=== PATIENT | female | born 1975 | race Caucasian/White ===

== ENCOUNTER 2019-04-15 10:21 | Outpatient (CLI) | payer BC, SELFPAY ==
--- NOTE | ~2019-04-15 | XR_ITS ---
EXAMINATION: XR knee RT 3V DATE: 04/15/2019 11:05 INDICATION: Right knee cellulitis. TECHNIQUE: 3 views of right knee were obtained. COMPARISON: None. FINDINGS: Bone alignment is normal. No fracture. There is mild osteoarthritis of medial and patellofe moral compartments. No knee joint effusion. IMPRESSION: 1. Mild right knee osteoarthritis. Reviewed, dictated and finalized at location A. TEACHER ASSISTANT
[2019-04-15 11:03] LABS: Hematocrit 41.8 % (37.0-47.0); Hemoglobin 13.8 g/dL (12.0-15.0); Mean Corpuscular Hemoglobin 27.5 pg (26-34); Mean Corpuscular Volume 83.3 fl (80-100); Mean Platelet Volume 8.9 fl (7.4-10.4); Platelet Count Result 403 k/mm3 (150-375); Red Blood Count 5.02 M/mm3 (4.2-5.4); White Blood Count 7.5 K/mm3 (4.5-10.0)
[2019-04-15 11:16] LABS: Blood Urea Nitrogen 11 mg/dL (7-17); CRP < 0.5 mg/dL (<1.0); Calcium 9.2 mg/dL (8.4-10.2); Carbon Dioxide 25 mmol/L (22-30); Chloride 101 mmol/L (98-107); Estimated Glomerular Filt Rate > 60; Glucose 79 mg/dL (65-105); Potassium 3.4 mmol/L (3.4-5.0); Sodium 137 mmol/L (137-145)
[2019-04-15 11:31] LABS: Erythrocyte Sedimentation Rate 8 mm/hr (0-20)
== END 2019-04-15 10:22 | disposition home or self-care (01) ==
LOC: ANHLAB 10:26 → ANHIMG 10:38
PROVIDERS: Visit Provider Emergency Medicine
DX: L03.115 Cellulitis of right lower limb (principal); M17.11 Unilateral primary osteoarthritis, right knee
CPT/HCPCS: 36415; 73562; 80048; 85027; 85652; 86140

== ENCOUNTER 2019-04-26 01:50 | Inpatient (IN) | payer BC, SELFPAY ==
[2019-04-26] VITALS (30 sets, daily range): BP systolic 100–148; BP diastolic 72–110; PULSE 18–100; RESP 9–69; TEMP 36.3–36.9; O2SAT 95–100
--- NOTE | 2019-04-26 | ECHO_ITS ---
Patient Info Name: Ramila Brandon Age: 43 years : 1975 Gender: Female Ht: 64 in Wt: 170 lbs BSA: 1.89 m2 HR: 82 bpm BP: 140 / 101 mmHg Technical Quality: Fair Exam Date: 04/26/2019 2:05 PM Exam Location: [facility] Patient Status: Inpatient Admit Date: 04/26/2019 Staff Ordering Physician: Luc Nelson MD Molder Operator: Nicole Ortega RDCS Attending Provider: Emory Jacobsen MD Exam Type: CA echo dop color flow w con Study Info Complete two-dimensional, color flow and Doppler transthoracic echocardiogram is performed with contrast to opacify the left ventrical and to improve the deliniation of the left ventrical endocarial boarders. Contrast/Agitated Saline Contrast/Ag. Saline: Definity Amount: 2.00 ml Summary 1. Left ventricular systolic function is normal, estimated at 60-65%. Left Ventricle Left ventricular chamber dimension is normal. Left ventricular systolic function is normal, estimated at 60-65%. There is no increased left ventricular wall thickness. Left ventricular septal wall motion is normal. The left ventricular diastolic function is normal. Right Ventricle Right ventricular chamber dimension is normal. Right ventricular systolic function is normal. Left Atria Left atrial chamber dimension is normal. Right Atria Right atrial chamber dimension is normal. Aortic Valve The aortic valve is trileaflet. There is no aortic valve sclerosis. There is no aortic valve stenosis. There is no aortic valve regurgitation. Pulmonic Valve The pulmonic valve is normal. There is no pulmonic valve stenosis. There is no pulmonic regurgitation. Mitral Valve The mitral valve has normal leaflets. There is no mitral valve stenosis. There is no mitral valve regurgitation. Tricuspid Valve The tricuspid valve leaflets are normal. There is no significant tricuspid valve stenosis. There is no tricuspid valve regurgitation. No pulmonary hypertension, estimated pulmonary arterial systolic pressure is 28 mmHg. Pericardium/Pleural The pericardium appears normal. There is no pericardial effusion. Inferior Vena Cava Normal inferior vena cava with >50% collapse upon inspiration consistent with normal right atrial pressure, 5 mmHg. Aorta The aortic root size at the sinus of Valsalva is normal. The prox ascending aorta size is normal. Left Ventricular Outflow Tract Name Value Normal LVOT 2D LVOT Diameter 2.05 cm LVOT Doppler LVOT Peak Velocity 94.24 cm/s LVOT Peak Gradient 2 mmHg LVOT Mean Gradient 1 mmHg LVOT VTI 18.58 cm LVOT VTI/AV VTI Ratio 0.99 LVOT Stroke Volume 61.02 ml LVOT CO 13.09 l/min LVOT CI 6.93 L/min/m2 Mitral Valve Name Value Normal
--- NOTE | ~2019-04-26 | XR_ITS ---
XR chest 2V DATE: 04/26/2019 02:49 INDICATION: Generalized chest pain, bilateral arm pain, dizziness TECHNIQUE: AP and lateral views COMPARISON: None FINDINGS: Normal heart size. No hilar or mediastinal enlargement. No pulmonary infiltrate or consolid ation, pleural effusion or pulmonary vascular congestion or pneumothorax. Included skeletal structure s are unremarkable. IMPRESSION: No active cardiopulmonary disease Reviewed, dictated and finalized at location A. NING OPERATOR
--- NOTE | 2019-04-26 02:22 | ECG_ITS ---
Measurements Intervals [place] Rate: 77 P: 28 ME: 139 QRS: 7 QRSD: 110 T: 20 QT: 393 QTc: 446 Interpretive Statements SINUS RHYTHM WITH SINUS ARRHYTHMIA NORMAL ECG Electronically Signed On 04-26-2019 7:36:59 ROPE CUTTER by Karl Guzman D.O.
--- NOTE | 2019-04-26 02:29 | ED.CHESTPAIN ---
HPI - Chest Pain General Chief Complaint: Chest Pain Stated Complaint: Chest Pain Time Seen by Provider: 04/26/19 02:01 Source: patient Mode of arrival: ambulatory Limitations: no limitations History of Present Illness HPI narrative: A 43 y/o female presents to the ED with c/o substernal CP. Pt states that the CP started yesterday night and the CP started suddenly. The CP radiated into the back of both of her arms. Initially the CP was a 3/10, but worsened to a 7/10 in severity. The episode lasted approximately 10 minutes. Pt adds that she drove to work and the CP started again, but it was less severe than the first episode. Pt reports diaphoresis, but denies N/V. She denies any stress that could have caused the CP. Pt took Tums, Aspirin 81mg x4, and Pepcid prior to her arrival in the ED. MD complaint: chest pain (Substernal) Onset (ago): hour(s) (Yesterday night) Timing of current episode: episodic Pain location: substernal Pain radiation: right arm and left arm Associated symptoms: diaphoresis Treatment prior to arrival: aspirin and other (Tums, Pepcid) Related Data Home Medications Medication Instructions Recorded Confirmed armodafinil mg PO 04/26/19 baclofen mg 04/26/19 methylphenidate HCl 04/26/19 protriptyline mg 04/26/19 Allergies Allergy/AdvReac Type Severity Reaction Status Date / Time Penicillins Allergy Hives Verified 04/26/19 02:24 Review of Systems Review of Systems: Narrative: CONSTITUTIONAL: Denies fever, chills, or sweats. EYES: Denies visual changes, redness, or discharge. ENT: Denies rhinorrhea, congestion, sore throat, or otalgia. CARDIOVASCULAR: Denies palpitations or edema. Reports substernal chest pain and diaphoresis. RESPIRATORY: Denies cough or dyspnea. GASTROINTESTINAL: Denies abdominal pain, nausea, vomiting, or diarrhea. GENITOURINARY: Denies dysuria or hematuria. SKIN: Denies rash or itching. MUSCULOSKELETAL: Denies back pain, joint pain, or myalgia. NEUROLOGIC: Denies headache, numbness, or weakness. 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 Exam Narrative: Exam Narrative: GENERAL: Well-appearing, well-nourished, and in no acute distress. HEAD: Normocephalic, atraumatic. EYES: PERRLA and EOMI. ENT: Nares clear, no rhinorrhea or epistaxis. Mucous membranes moist. NECK: Supple. CHEST: Clear to auscultation. No respiratory distress. HEART: Regular rate and rhythm. No murmur heard. Normal peripheral pulses. ABDOMEN: Soft, nontender, nondistended, normal active bowel sounds. EXTREMITIES: Normal range of motion. No edema. SKIN: Warm, dry, no rash. NEURO: No focal deficits. Alert and oriented X3. Course Vital Signs Vital signs: Vital Signs Temperature 36.9 C 04/26/19 02:14 Pulse Rate 85 04/26/19 02:14 Respiratory Rate 13 04/26/19 02:14 Blood Pressure 145/106 H 04/26/19 02:14 Pulse Oximetry 99 04/26/19 02:14 Temperature 36.8 C 04/26/19 05:37 Pulse Rate 83 04/26/19 05:37 Respiratory Rate 13 04/26/19 05:37 Blood Pressure 123/93 H 04/26/19 05:37 Pulse Oximetry 99 04/26/19 05:37 MDM - Chest Pain MDM Narrative Medical decision making narrative: Patient presented for evaluation of anginal type chest pain. Patient has a heart score of 6. She has an elevation in troponin, she has some depressions which are stable on concurrent EKGs, but she has some T wave inversions that are dynamic on her EKGs. Patient chest pain-free in the ER. She was given aspirin, nitroglycerin ordered for the patient as well. Given elevation in tropo
[2019-04-26 02:42] LABS: Basophils Percent Auto 0.4 % (0.2-1.2); Eosinophils Percent Auto 0.4 % (0-4.4); Hematocrit 44.4 % (37.0-47.0); Hemoglobin 14.4 g/dL (12.0-15.0); Immature Granulocyte Absolute 0.04 K/mm3 (0.00-0.031); Immature Granulocyte Percent A 0.5 % (0-0.5); Lymphocytes Percent Auto 18.8 % (18.3-44.2); Mean Corpuscular HGB Conc 32.4 g/dl (32-36); Mean Corpuscular Hemoglobin 27.4 pg (26-34); Mean Corpuscular Volume 84.6 fl (80-100); Mean Platelet Volume 9.1 fl (7.4-10.4); Monocytes Absolute Auto 0.5 K/mm3 (0.1-0.6); Monocytes Percent Auto 6.1 % (2.6-8.5); Neutrophils Absolute Auto 5.9 K/mm3 (1.3-6.7); Neutrophils Percent Auto 73.8 % (45.5-73.1); Platelet Count Result 393 k/mm3 (150-375); Red Blood Count 5.25 M/mm3 (4.2-5.4); Red Cell Distribution Width 13.3 % (11.5-14.5)
[2019-04-26 02:55] LABS: INR 0.9; Prothrombin Time 12.3 Seconds (11.1-14.7)
[2019-04-26 02:57] LABS: Partial Thromboplastin Time 29.7 SECONDS (22.3-36.8)
[2019-04-26 03:10] LABS: Blood Urea Nitrogen 15 mg/dL (7-17); Calcium 9.9 mg/dL (8.4-10.2); Carbon Dioxide 29 mmol/L (22-30); Chloride 100 mmol/L (98-107); Estimated Glomerular Filt Rate > 60; Glucose 101 mg/dL (65-105); Potassium 3.4 mmol/L (3.4-5.0); Sodium 140 mmol/L (137-145); Troponin I 0.056 ng/mL (0.000-0.034)
[2019-04-26] MEDS: HEPARIN SODIUM 5,000 UNITS/ML VIAL 4000 UNITS IV PUSH ×2 (05:07→21:25)
[2019-04-26] MEDS: HEPARIN SOD/D5W 100 UNITS/ML 25,000 UNITS/250 ML BAG 8 UNITS IV CONT ×2 (05:34→13:08)
[2019-04-26 06:36] LABS: Troponin I 0.593 ng/mL (0.000-0.034)
[2019-04-26] MEDS: ASPIRIN 81 MG CHEWABLE TABLET PO (08:27)
--- NOTE | 2019-04-26 08:58 | PM.IMHP ---
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 She had a light 1st meals a day with 1 taco. She then started to work. While driving she began to experience some pressure in her back that radiated down both arms to her elbows. It was mild perhaps 3/10. It lasted 10-15 minutes. It recurred when she reached her workplace and got out of the car and cane and to the building. It was again about 3/10. Same area. 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 This time the pressure was substernal as well and radiated down both arms. She became diaphoretic. Because of this she presented to the emergency department. She has not been experiencing any indigestion. She has never had similar discomfort. No prior history of coronary disease. No recent indigestion or heartburn. No recent change in bowel or bladder function. Family history of coronary disease and her mother at age 65. Former smoker. Does have hypertension. No history of hyperlipidemia. No diabetes. Review of Systems Review of Systems: All systems reviewed & are unremarkable except as noted in HPI and below PMFSH Past Medical History Medical History Cerebral palsy HTN (hypertension) Surgical History Surgical History History of tonsillectomy Family History Family History Mother Narcolepsy CANDELARIA (obstructive sleep apnea) Diabetes mellitus Acute myocardial infarction Congestive heart failure Hypertension Sibling Chronic obstructive pulmonary disease Social History Social History Smoking status: Former smoker Second hand tobacco smoke exposure: Yes Alcohol intake: current Drinks per week: 1 Substance use: never Gender identity (if verbalized by the patient): Female Spiritual care concerns: Yes (lds) Agree to blood products: Yes Meds Home Medications and Allergies Home Medications Medication Instructions Recorded Confirmed Type Vitamin D3 2,000 units PO DAILY 04/26/19 04/26/19 History armodafinil 250 mg PO DAILY 04/26/19 04/26/19 History baclofen 20 mg PO BID 04/26/19 04/26/19 History baclofen 30 mg PO HS 04/26/19 04/26/19 History cetirizine [Zyrtec] 10 mg PO DAILY PRN 04/26/19 04/26/19 History methylphenidate HCl 10 mg PO BID PRN 04/26/19 04/26/19 History [id number]-FA-vit K 1 cap PO DAILY 04/26/19 04/26/19 History [Bariatric Multivitamins] protriptyline 5 mg PO BID 04/26/19 04/26/19 History vitamin B complex [B 1 tablet PO DAILY 04/26/19 04/26/19 History Complex-Vitamin B12] Allergies Allergy/AdvReac Type Severity Reaction Status Date / Time Penicillins Allergy Hives Verified 04/26/19 02:24 plastic tape Allergy Blister Uncoded 04/26/19 06:54 chicken AdvReac Diarrhea Uncoded 04/26/19 06:54 Vital Signs Vital Signs - 24 hr 04/26/19 02:14 04/26/19 02:27 04/26/19 05:37 Temperature 98.5 F 98.3 F Pulse Rate 85 100 83 Respiratory Rate 13 13 Blood Pressure 145/106 H 123/93 H Pulse Oximetry 99 97 99 04/26/19 06:43 Temperature Pulse Rate 90 Respiratory Rate 16 Blood Pressure 140/101 H Pulse Oximetry 99 Exam Narrative: Exam Narrative: HEENT: EOMI, PERRL, pharyngeal mucosa pink and intact NECK: No JVD, adenopathy, or thyromegaly CHEST: Clear to auscultation. Normal effort. HEART: NL S1/S2, regular, no murmur ABDOMEN: BS+, soft, nontender, no mass, no bruits EXTREMITIES: No cyanosis, edema, or clubbing NEUROLOGIC: CN intact and symmetric to inspection. MUSCULOSKELETAL: Tone and strength symmetric. PSYCH: Alert. Oriented to person, place, and time. H&P: Results Labs Labs: Shavon
[2019-04-26] MEDS: NITROGLYCERIN SL 0.4 MG TABLET SUBLINGUAL ×4 (09:10→12:35)
--- NOTE | 2019-04-26 09:33 | PM.CNCAR ---
Assessment and Plan Assessment and plan (1) HTN (hypertension): Code(s): I10 - Essential (primary) hypertension Status: Acute Assessment and Plan: Will start on low-dose metoprolol and watch closely (2) Chest pain: Qualifiers: Chest pain type: chest pain due to myocardial ischemia Ischemic chest pain type: unstable angina pectoris Qualified Code(s): I20.0 - Unstable angina Code(s): R07.9 - Chest pain, unspecified Status: Acute Assessment and Plan: Seems to be atypical in nature but however she had some EKG changes and 2nd troponin is elevated suggestive of non ST elevation myocardial infarction. Will proceed with cardiac catheterization. (3) Non-ST elevation myocardial infarction (NSTEMI): Code(s): I21.4 - Non-ST elevation (NSTEMI) myocardial infarction Status: Acute Assessment and Plan: Troponin is elevated, she had recurrent episode of chest pain in spite of heparin and aspirin, will proceed with cardiac catheterization today. Procedure discussed with patient, risks, benefits, alternative diagnostic measures were explained, she agreed with the procedure (4) GERD (gastroesophageal reflux disease): Code(s): K21.9 - Gastro-esophageal reflux disease without esophagitis Status: Acute Additional Plan Thank you for allowing me to participate in this patient's care, I will be following up with you. Please do not hesitate to call me for any other inquiry History of Present Illness History of Present Illness Consult date/time: 04/26/19 09:33 43 years old lady with history of cerebral palsy, and borderline hypertension, came down to the emergency room because of recurrent episode of chest pain. 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 She took a GI cocktail, and she took aspirin, but started having another episode of chest pain, total episodes of pain was for episodes 1 of them was more severe and lasted longer and with that she had some diaphoresis. No known history of coronary artery disease no history of previous myocardial infarction. With that she had no shortness of breath no palpitation no dizziness no syncope. No history of nausea, she had history of gastric sleeve, indicate occasional abdominal heaviness but no recent episodes of that. Her EKG showed inverted T-wave in lateral leads which resolved, troponin slightly elevated and subsequent set showed troponin of 0.5. Currently she is having no chest pain but then upon further discussion she stated she has pain 3/ Reason For Visit: angina Review of Systems Constitutional: Constitutional: Reports difficulty sleeping and Reports lethargy Cardiovascular: Cardiovascular: Reports as per HPI Musculoskeletal: Comments: History of cerebral palsy Neurologic: Comments: History of cerebral palsy [facility] Past Medical History Medical History Cerebral palsy HTN (hypertension) Surgical History Surgical History History of tonsillectomy Family History Family History Mother Narcolepsy CANDELARIA (obstructive sleep apnea) Diabetes mellitus Acute myocardial infarction Congestive heart failure Hypertension Sibling Chronic obstructive pulmonary disease Social History Social History Smoking status: Former smoker Second hand tobacco smoke exposure: Yes Alcohol intake: current Drinks per week: 1 Substance use: never Gender identity (if verbalized by the patient): Female Spiritual care concerns: Yes (lds) Agree to blood products: Yes Meds Home Medications and Aller
[2019-04-26] MEDS: BACLOFEN 10 MG TABLET 20 MG PO ×2 (10:00→15:19)
--- NOTE | 2019-04-26 11:00 | ADMGEN ---
This patient, Ramila Brandon, was admitted to Intensive Care Unit-9. Patient/family oriented to hospital policies and general routines including ID bracelet, bed and alarms, visiting hours, pain management, procedures, bathroom and other care routines, personal items, smoking policy, room service/diet, and visiting hours. Valuables list has been completed. Information on how to activate the Rapid Response Team has been discussed. Patient/Family are encouraged to report perceived risks to care and to ask questions if they do not understand what they are told or what they should do.
--- NOTE | 2019-04-26 11:46 | WPDCARDPROC ---
Cardiac Cath Procedure Note Date of procedure:: 04/26/19 Performing physician:: Luc Nelson MD Procedure: 1. Left heart catheterization, selective coronary angiogram. 2. Left ventricular angiogram. 3. Conscious sedation. 4. Angio-Seal device for arterial hemostasis 5. Injection of intracoronary nitroglycerin Radiator Core Tester: Dr. Luc Nelson Complications: None. Sedation: Conscious sedation, local anesthesia, using 1 mg of Versed said, 25 mcg of fentanyl, and using 1% lidocaine for local anesthesia. Technique: After informed consent was obtained from patient, was brought to the optical lab technician, put in the optical lab technician table, prepped and draped in usual sterile fashion. Five Croatian sheath was inserted into the right common femoral artery, through the sheath 5 Croatian JL4 catheter inserted, advanced to the left coronary artery, left coronary artery angiogram was obtained. The catheter was exchanged over guidewire into a 5 Croatian JR4 catheter, advanced to the right coronary artery, right coronary artery angiogram was obtained. The catheter then was exchanged over guidewire into this 5 Croatian pigtail catheter, advanced to left ventricle, left ventricular angiogram was obtained. Five Croatian JR4 catheter inserted again, an intra arterial nitroglycerin was administered, a repeat angiogram was done The catheter then was pulled, the sheath was pulled applying Angio-Seal device for arterial hemostasis. Patient tolerated the procedure no complication, taken from the optical lab technician to his room in stable condition stable vital signs. Hemodynamics: aortic pressure 114/60 . LV pressure 114/04 with LVEDP of 14 mmHg Angiographic findings: Left main: Medium size artery no significant disease or stenosis. Lad medium size artery showed no significant disease or stenosis, 1st diagonal branch has a branch that has proximal disease 50% followed by a branch coming off with subtotal occlusion but at that level the branches about less than 1 mm, seems to reconstitute distally Left circumflex artery, medium size artery, no significant disease or stenosis. RCA: Dominant vessel, showed no significant disease or stenosis LV: Normal size left ventricle with normal left ventricular systolic function. Summary: Single-vessel coronary disease with small vessel disease 3rd order vessel, otherwise no significant other lesions. Normal left ventricular systolic function Recommendation: Maximum medical treatment. Risk factor modification. Will keep on heparin for 48 hours total, continue with aspirin and Brilinta
[2019-04-26] MEDS: TICAGRELOR 90 MG TABLET PO ×2 (12:32→21:10)
[2019-04-26] MEDS: ROSUVASTATIN 5 MG TABLET PO (12:32)
[2019-04-26] MEDS: METOPROLOL SUCCINATE EXT REL 25 MG TABCR PO (12:32)
[2019-04-26 12:57] LABS: Partial Thromboplastin Time 29.3 SECONDS (22.3-36.8); Prothrombin Time 13.1 Seconds (11.1-14.7)
[2019-04-26 12:59] LABS: Glucose Point of Care 70 (65-105)
[2019-04-26] MEDS: ISOSORBIDE MONONITRATE 30 MG TAB.ER.24H PO (13:04)
[2019-04-26] MEDS: SODIUM CHLORIDE 0.9% IV 1,000 ML 80 ML IV CONT (13:07)
[2019-04-26 13:11] LABS: Troponin I 0.542 ng/mL (0.000-0.034)
[2019-04-26] MEDS: PERFLUTREN LIPID MICROSPHERES 1.5 ML VIAL DILUTED TO 10 ML TOTAL VOLUME (15:19)
[2019-04-26] MEDS: ACETAMINOPHEN 500 MG TABLET 1000 MG PO (17:41)
[2019-04-26] MEDS: BACLOFEN 10 MG TABLET 30 MG PO (21:15)
[2019-04-27] VITALS (8 sets, daily range): BP systolic 110–117; BP diastolic 74–75; PULSE 53–98; RESP 16–18; TEMP 36.2–36.4; O2SAT 98–100
[2019-04-27] MEDS: ACETAMINOPHEN 500 MG TABLET 1000 MG PO ×2 (00:09→12:24)
[2019-04-27 03:37] LABS: Basophils Percent Auto 0.3 % (0.2-1.2); Eosinophils Absolute Auto 0.2 K/mm3 (0-0.3); Hematocrit 37.6 % (37.0-47.0); Immature Granulocyte Absolute 0.03 K/mm3 (0.00-0.031); Immature Granulocyte Percent A 0.3 % (0-0.5); Lymphocytes Absolute Auto 2.09 K/mm3 (0.9-3.2); Lymphocytes Percent Auto 22.8 % (18.3-44.2); Mean Corpuscular HGB Conc 31.9 g/dl (32-36); Mean Corpuscular Hemoglobin 27.4 pg (26-34); Mean Corpuscular Volume 85.8 fl (80-100); Monocytes Absolute Auto 0.5 K/mm3 (0.1-0.6); Monocytes Percent Auto 5.5 % (2.6-8.5); Neutrophils Absolute Auto 6.3 K/mm3 (1.3-6.7); Neutrophils Percent Auto 69.1 % (45.5-73.1); Platelet Count Result 299 k/mm3 (150-375); Red Blood Count 4.38 M/mm3 (4.2-5.4); Red Cell Distribution Width 13.2 % (11.5-14.5); White Blood Count 9.2 K/mm3 (4.5-10.0)
[2019-04-27 03:48] LABS: Partial Thromboplastin Time 106.8 SECONDS (22.3-36.8)
[2019-04-27 03:55] LABS: Alanine Aminotransferase 13 U/L (4-35); Albumin Level 3.3 g/dL (3.5-5.1); Alkaline Phosphatase 64 U/L (38-126); Aspartate Amino Transferase 23 U/L (14-36); Bilirubin,Total 0.1 mg/dL (0.2-1.3); Blood Urea Nitrogen 7 mg/dL (7-17); Calcium 8.5 mg/dL (8.4-10.2); Carbon Dioxide 26 mmol/L (22-30); Chloride 102 mmol/L (98-107); Cholesterol 135 mg/dL (0-200); Estimated CRCL calculation 151 ml/min; Estimated Glomerular Filt Rate > 60; Glucose 81 mg/dL (65-105); HDL Direct 48 mg/dL; Potassium 3.3 mmol/L (3.4-5.0); Sodium 139 mmol/L (137-145); Triglycerides 59 mg/dL (<150)
[2019-04-27 03:58] LABS: LDL Cholesterol Direct 67 mg/dL
[2019-04-27 04:12] LABS: Troponin I 0.533 ng/mL (0.000-0.034)
[2019-04-27] MEDS: SALINE 0.65% NAS SOLN 44 ML BTL 1 SPRAY NASAL (05:11)
[2019-04-27] MEDS: ONDANSETRON INJ 4 MG/2 ML VIAL IV PUSH (05:12)
[2019-04-27 10:46] LABS: Partial Thromboplastin Time 72.4 SECONDS (22.3-36.8)
[2019-04-27] MEDS: TICAGRELOR 90 MG TABLET PO ×2 (10:47→13:17)
[2019-04-27] MEDS: METOPROLOL SUCCINATE EXT REL 25 MG TABCR PO (10:47)
[2019-04-27] MEDS: CHOLECALCIFEROL 1,000 UNIT TABLET 2000 UNITS PO (10:52)
[2019-04-27] MEDS: ATORVASTATIN 20 MG TABLET PO (10:52)
[2019-04-27] MEDS: VITAMIN B COMPLEX CAPSULE 1 CAP PO (10:53)
[2019-04-27] MEDS: MULTIVITAMINS /C LUTEIN (CENTRUM SILVER) TABLET *BKC 1 TAB PO (10:53)
--- NOTE | 2019-04-27 11:17 | PM.PNCARD ---
Progress Note: A&P Assessment and Plan (1) HTN (hypertension): Code(s): I10 - Essential (primary) hypertension Status: Acute Assessment and Plan: Well controlled now on metoprolol y (2) Chest pain: Qualifiers: Chest pain type: chest pain due to myocardial ischemia Ischemic chest pain type: unstable angina pectoris Qualified Code(s): I20.0 - Unstable angina Code(s): R07.9 - Chest pain, unspecified Status: Acute Assessment and Plan: Cardiac catheterization done yesterday showed small diagonal branch disease, will continue with medical treatment, with aspirin Brilinta and Crestor (3) Non-ST elevation myocardial infarction (NSTEMI): Code(s): I21.4 - Non-ST elevation (NSTEMI) myocardial infarction Status: Acute Assessment and Plan: She seems to be stable now to be discharged home on the above medications, she needs to start exercise program, and have a follow-up with me in 1 week (4) GERD (gastroesophageal reflux disease): Code(s): K21.9 - Gastro-esophageal reflux disease without esophagitis Status: Acute Additional Plan Thank you for allowing me to participate in this patient's care, I will be following up with you. Please do not hesitate to call me for any other inquiry Subjective Date/time seen: 04/27/19 11:17 She feels very well today, no chest pain no shortness of breath she had slight tenderness and pain at the groin site which resolved today. She is able to walk with no limitation. Exam Narrative: Exam Narrative: Awake alert oriented x3 not in acute distress Neck is supple no obvious JVD, no carotid bruit Chest: Good air entry bilaterally, lungs are clear to auscultation and percussion bilaterally Cardiovascular: Regular rate and rhythm, 2/6 systolic murmur noted left sternal border, and mitral valve prolapse click noted Abdomen: Soft nontender bowel sounds positive Extremities: No edema has good pulses distally bilaterally Objective Data Vital Signs Vital Signs: Vital Signs - 24 hr 04/26/19 11:22 04/26/19 11:24 04/26/19 11:25 Temperature 36.8 C Pulse Rate 82 84 Respiratory Rate 21 H Blood Pressure 130/90 Pulse Oximetry 98 04/26/19 11:30 04/26/19 11:45 04/26/19 12:00 Temperature Pulse Rate 82 79 78 Respiratory Rate 13 18 15 Blood Pressure 118/87 139/93 H 131/95 H Pulse Oximetry 95 99 99 04/26/19 12:30 04/26/19 12:32 04/26/19 12:38 Temperature 36.6 C Pulse Rate 67 75 88 Respiratory Rate 12 20 Blood Pressure 132/84 132/84 Pulse Oximetry 100 100 04/26/19 13:00 04/26/19 14:00 04/26/19 14:54 Temperature Pulse Rate 75 67 67 Respiratory Rate 13 9 L Blood Pressure 128/91 H 116/81 Pulse Oximetry 99 100 04/26/19 15:00 04/26/19 16:00 04/26/19 17:43 Temperature Pulse Rate 73 73 96 Respiratory Rate 18 15 27 H Blood Pressure 126/91 H 109/73 Pulse Oximetry 100 98 98 04/26/19 18:00 04/26/19 19:39 04/26/19 20:00 Temperature 36.3 C L Pulse Rate 86 18 L 78 Respiratory Rate 17 69 H Blood Pressure 113/81 100/72 Pulse Oximetry 98 98 04/26/19 22:00 04/27/19 00:00 04/27/19 02:00 Temperature 36.3 C L Pulse Rate 67 66 66 Respiratory Rate 18 Blood Pressure 110/75 Pulse Oximetry 98 04/27/19 04:00 04/27/19 06:00 04/27/19 10:36 Temperature 36.2 C L 36.4 C Pulse Rate 53 L 58 L 98 Respiratory Rate 16 16 Blood Pressure 117/74 Pulse Oximetry 100 99 04/27/19 10:47 Temperature Pulse Rate 93 Respiratory Rate Blood Pressure Pulse Oximetry Intake/Output Intake/Output: Intake & Output 04/24/19 04/25/19 04/26/19 04/27/19 23:59 23:59 23:59 23:59 Intake Total 150 1690 Output Total 1225 Balance 150 465 Meds/Results Medications: Active Medications Generic Name Dose Route Start Last Admin Trade Name Freq PRN Reason Stop Dose Admin Acetaminophen 1,000 mg 04/26/19 16:28 04/27/19 00:09 Tylenol Tablet PO 1,000 mg Q6H PRN Admin
--- NOTE | 2019-04-27 11:52 | PM.DS ---
DS: Diagnosis Admitting Diagnosis Admitting Diagnosis: Unstable angina Discharge Diagnosis (1) Chest pain: Qualifiers: Chest pain type: chest pain due to myocardial ischemia Ischemic chest pain type: unstable angina pectoris Qualified Code(s): I20.0 - Unstable angina Code(s): R07.9 - Chest pain, unspecified Status: Acute Assessment and Plan: Symptoms are consistent with angina pectoris Elevation of troponin is significant and worrisome for non ST myocardial infarction even though her electrocardiogram is unremarkable. Discharge meds ordered (2) HTN (hypertension): Code(s): I10 - Essential (primary) hypertension Status: Acute Assessment and Plan: Would likely benefit from antihypertensive therapy Metoprolol DS: Summary Hospital Course Reason for hospitalization: chest pain Hospital Course: Admitted with chest pain and elevated troponin. Treated with ACS protocol. Vitals remained stable. Coronary angiogram showed single-vessel coronary disease with small vessel disease 3rd order vessel, otherwise no significant other lesions. Normal left ventricular systolic function. Remained stable without chest pain. Time Spent with Patient Time attestation: Total time spent providing and/or coordinating discharge services:35 min Exam Narrative: Exam Narrative: HEENT: EOMI, PERRL, pharyngeal mucosa pink and intact NECK: No JVD, adenopathy, or thyromegaly CHEST: Clear to auscultation. Normal effort. HEART: NL S1/S2, regular, no murmur ABDOMEN: BS+, soft, nontender, no mass, no bruits EXTREMITIES: No cyanosis, edema, or clubbing NEUROLOGIC: CN intact and symmetric to inspection. MUSCULOSKELETAL: Tone and strength symmetric. PSYCH: Alert. Oriented to person, place, and time. DS: Data Data Completed and Pending Labs on day of discharge: Labs from last 24 hours 04/27/19 04/27/19 04/27/19 10:13 03:19 03:19 WBC RBC Hgb Hct MCV MCH MCHC RDW Plt Count MPV Immature Gran % (Auto) Neut % (Auto) Lymph % (Auto) [place] % (Auto) Eos % (Auto) Baso % (Auto) Lymph # (Auto) [place] # (Auto) Eos # (Auto) Baso # (Auto) Abs Immat Gran (auto) Absolute Neuts (auto) Absolute Nucleated RBC Nucleated RBC % PT INR APTT 72.4 H Sodium 139 Potassium 3.3 L Chloride 102 Carbon Dioxide 26 BUN 7 D Creatinine 0.40 L Estim Creat Clear Calc 151 Estimated GFR > 60 Glucose 81 POC Capillary Glucose Calcium 8.5 Total Bilirubin 0.1 L AST 23 ALT 13 Alkaline Phosphatase 64 Troponin I 0.533 H* Total Protein 6.0 L Albumin 3.3 L Triglycerides 59 Cholesterol 135 LDL Cholesterol Direct 67 HDL Direct 48 04/27/19 04/27/19 04/26/19 03:19 03:19 20:07 WBC 9.2 RBC 4.38 Hgb 12.0 Hct 37.6 MCV 85.8 MCH 27.4 MCHC 31.9 L RDW 13.2 Plt Count 299 MPV 9.0 Immature Gran % (Auto) 0.3 Neut % (Auto) 69.1 Lymph % (Auto) 22.8 [place] % (Auto) 5.5 Eos % (Auto) 2.0 Baso % (Auto) 0.3 Lymph # (Auto) 2.09 [place] # (Auto) 0.5 Eos # (Auto) 0.2 Baso # (Auto) 0.0 Abs Immat Gran (auto) 0.03 Absolute Neuts (auto) 6.3 Absolute Nucleated RBC 0.0 Nucleated RBC % 0.0 PT INR APTT 106.8 H 42.0 H Sodium Potassium Chloride Carbon Dioxide BUN Creatinine Estim Creat Clear Calc Estimated GFR Glucose POC Capillary Glucose Calcium Total Bilirubin AST ALT Alkaline Phosphatase Troponin I Total Protein Albumin Triglycerides Cholesterol LDL Cholesterol Direct HDL Direct 04/26/19 04/26/19 04/26/19 12:22 12:22 12:01 WBC RBC Hgb Hct MCV MCH MCHC RDW Plt Count MPV Immature Gran % (Auto) Neut % (Auto) Lymph % (Auto) [place] % (Auto) Eos % (Auto) Baso % (Auto) Lymph
[2019-04-27] MEDS: ISOSORBIDE MONONITRATE 30 MG TAB.ER.24H PO (12:25)
[2019-04-27] MEDS: ASPIRIN 81 MG CHEWABLE TABLET PO (12:25)
[2019-04-27] MEDS: BACLOFEN 10 MG TABLET 20 MG PO (12:26)
[2019-04-27] MEDS: POTASSIUM CHLORIDE 20 MEQ TABLET 40 MEQ PO (12:47)
== END 2019-04-27 13:15 | disposition home or self-care (01) | DRG 287 ==
LOC: ANHED 04:43 → ANHIMU 05:06 → ANHICU 10:52 → ANHIMU 04-27 11:58 → ANHICU 05-01 09:09 → ANHIMU 05-01 09:09
PROVIDERS: Specialist; Admitting Provider Internal Medicine; Emergency Provider Emergency Medicine; Visit Provider Internal Medicine
PROC: 4A023N7 Measurement of Cardiac Sampling and Pressure, Left Heart, Percutaneous Approach (ICD-10-PCS; CPT 93452; principal; 2019-04-26 09:50)
PROC: 4A023N7 Measurement of Cardiac Sampling and Pressure, Left Heart, Percutaneous Approach (ICD-10-PCS; 2019-04-26 09:50)
DX: I25.110 Atherosclerotic heart disease of native coronary artery with unstable angina pectoris (principal); K21.9 Gastro-esophageal reflux disease without esophagitis; I10 Essential (primary) hypertension; G80.9 Cerebral palsy, unspecified
CPT/HCPCS: 36415; 71046; 80048; 80053; 80061; 84484; 85025; 85380; 85610; 85730; 93005; 93458; 96365; 99285; A9270; C1760; C1887; C1894; C8929; G0269; J1644; J2250; J2405; J3010; J7030; J7040; Q9957

== ENCOUNTER → 2019-09-18 13:39 | Outpatient (CLI) | payer BC, SELFPAY ==
--- NOTE | ~2019-09-18 | US_ITS ---
EXAMINATION: US pelvic complete w TV DATE: 09/18/2019 14:11 INDICATION: Abnormal uterine bleeding TECHNIQUE: Multiple transabdominal and endovaginal sonographic images of the pelvis were obtained. COMPARISON: None. FINDINGS: The uterus measures 8.6 x 4.2 x 5.8 cm. There are isoechoic and hypoechoic masses of the ut erine body measuring up to 2.3 cm which have the appearance of intramural fibroids. The endometrial c omplex measures 16 mm. The right ovary measures 3.1 x 3.4 x 4.0 cm. There is a 1.8 x 1.2 x 1.4 cm hyp oechoic lesion of the right ovary. The left ovary measures 2.5 x 1.7 x 3.0 cm. There is normal vascul ar flow in the ovaries. There is no free fluid in the pelvis. IMPRESSION: 1. Multiple uterine fibroids. 2. Possible hemorrhagic cyst of the right ovary. Sonographic follow-up in 6-12 weeks is recommended. Reviewed, dictated and finalized at location A.
== END ==
PROVIDERS: Visit Provider Student in an Organized Health Care Education/Training Program
DX: N93.9 Abnormal uterine and vaginal bleeding, unspecified (principal); D25.9 Leiomyoma of uterus, unspecified
CPT/HCPCS: 76830; 76856

== ENCOUNTER 2019-09-20 06:30 | Outpatient (CLI) | payer BC, SELFPAY ==
[2019-09-20 17:27] LABS: SARS-CoV-2 RNA PCR Negative
== END 2019-09-20 06:31 | disposition home or self-care (01) ==
LOC: ANHCOVIDDT 06:31
PROVIDERS: Visit Provider Student in an Organized Health Care Education/Training Program
DX: Z01.812 Encounter for preprocedural laboratory examination (principal); Z11.59 Encounter for screening for other viral diseases
CPT/HCPCS: 87635; C9803; U0003

== ENCOUNTER 2019-10-10 07:05 | Outpatient (CLI) | payer BC, SELFPAY ==
[2019-10-10 07:43] LABS: Mean Corpuscular HGB Conc 31.6 g/dl (32-36); Mean Corpuscular Hemoglobin 26.2 pg (26-34); Mean Platelet Volume 9.2 fl (7.4-10.4); Platelet Count Result 376 k/mm3 (150-375); Red Blood Count 4.58 M/mm3 (4.2-5.4); Red Cell Distribution Width 14.9 % (11.5-14.5); White Blood Count 7.7 K/mm3 (4.5-10.0)
[2019-10-10 07:55] LABS: Cholesterol 126 mg/dL (0-200); HDL Direct 50 mg/dL; Triglycerides 74 mg/dL (<150)
[2019-10-10 08:07] LABS: LDL Cholesterol Direct 58 mg/dL
== END 2019-10-10 07:06 | disposition home or self-care (01) ==
DX: E78.2 Mixed hyperlipidemia (principal)
CPT/HCPCS: 36415; 80061; 85027

== ENCOUNTER 2019-11-03 00:13 | Outpatient (CLI) | payer BC, SELFPAY ==
[2019-11-03 20:23] LABS: SARS-CoV-2 RNA PCR Negative
== END 2019-11-03 00:14 | disposition home or self-care (01) ==
LOC: ANHCOVIDDT 00:14
PROVIDERS: Visit Provider Student in an Organized Health Care Education/Training Program
DX: Z01.812 Encounter for preprocedural laboratory examination (principal); Z20.828 Contact with and (suspected) exposure to other viral communicable diseases
CPT/HCPCS: 87635; C9803; U0003

== ENCOUNTER 2019-11-05 00:10 | Day surgery (SDC) | payer BC, SELFPAY ==
[2019-09-17 09:18] VITALS: BMI 28.1
--- NOTE | 2019-11-04 14:40 | PM.IMHP ---
H&P: HPI History of Present Illness Date/Time: 11/04/19 14:40 Chief complaint: Menorrhagia Narrative: Ramila Brandon is a 44 year old nulligravid woman with a long history of menorrhagia. Reports menorrhagia since menarche. Currently states that menses last 7-10 days. She uses menstrual cup with pads for backup. For 1st 3 days of cycle, patient reports changing menstrual cup and pads every 2 hours. For next few days of cycle, patient reports changing menstrual cup and pad every 4-5 hours. For last 2 days of cycle, patient reports changing cups and pads every 6-12 hours. She denies passage of significant blood clots during cycle and denies significant cramping or pain. She does have a history of anemia from heavy menses requiring multiple iron transfusions. Patient has not been sexually active since age 24. Last pap was in 09/2019, WNL. No hx abnl pap. An in-office EMB was attempted, however, unsuccessful due to cervical stenosis. Decision made to proceed with hysteroscopy/D&C as well an endometrial ablation for management of menorrhagia. Review of Systems Review of Systems: All systems reviewed & are unremarkable except as noted in HPI and below Constitutional: Constitutional: Reports as per HPI, Reports no additional constitutional complaints, Denies chills, Denies fever(s), Denies headache(s) and Denies night sweats Eyes: Eyes: Reports as per HPI and Reports no additional eye complaints ENT: Reports system reviewed and no additional complaints, except as documented, Reports as per HPI, Reports Normal hearing present and Denies headache(s) Cardiovascular: Cardiovascular: Reports as per HPI, Reports no additional cardiovascular complaints, Denies chest pain and Denies dyspnea Respiratory: Respiratory: Reports as per HPI, Reports no additional respiratory complaints, Denies cough and Denies dyspnea Gastrointestinal: Gastrointestinal: Reports as per HPI, Reports no additional gastrointestinal complaints, Denies abdominal pain, Denies change in bowel habits, Denies change in stool character, Denies nausea and Denies vomiting Genitourinary: Genitourinary: Reports no additional female genitourinary complaints, Reports as per HPI, Denies abnormal vaginal bleeding, Denies genital lesions, Denies hot flashes, Denies dyspareunia, Denies pelvic pain, Denies sexual dysfunction, Denies urinary incontinence, Denies vaginal discharge, Denies vaginal dryness and Denies vaginal odor Musculoskeletal: Musculoskeletal: Reports no additional musculoskeletal complaints and Reports as per HPI Integumentary/Breasts: Skin/Breast: Reports system reviewed and no additional complaints, except as docu, Reports as per HPI, Denies breast pain and Denies nipple discharge Neurologic: Reports system reviewed and no additional complaints, except as documented, Reports as per HPI, Reports Normal hearing present and Denies headache(s) Psychiatric: Psychiatric: Reports no additional psychiatric complaints, Reports as per HPI, Denies anxiety and Denies depression Endocrine: Endocrine: Reports no additional endocrine complaints and Reports as per HPI Hematologic/Lymphatic: Hematologic/Lymphatic: Reports no additional hematologic/lymphatic complaints and Reports as per HPI Allergic/Immunologic: Allergic/Immunologic: Reports no additional allergic/immunologic complaints and Reports as per HPI PMFSH Past Medical History Medical History Achilles tendon disorder Allergic rhinitis Anemia Cerebral palsy Depression Essential hypertension Heart attack HTN (hypertension) Iron deficiency anemia 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
[2019-11-05 07:15] VITALS: BP 130/67; PULSE 54; RESP 16; TEMP 37.3; O2SAT 98
[2019-11-05] MEDS: ACETAMINOPHEN 500 MG TABLET 1000 MG PO (07:25)
[2019-11-05] MEDS: LACTATED RINGERS 1,000 ML 30 ML IV CONT (07:25)
--- NOTE | 2019-11-05 08:37 | WPDANESEPPF ---
Anes - Initial Pre Proc Eval Procedure: Operation Date: 11/05/19 08:30 Proposed Procedures p Hysteroscopy Dilation and Curettage, Sharita Ablation, With Possible Myosure, Pelvic Exam And Pap Smear - Raisa Man MD Date/Time: 11/05/19 08:37 Surgeon: Raisa Man MD Pre Op Diagnosis: Menorrhagia Patient Data Age: 44 Gender: F Height: 5 ft 4 in Weight: 75 kg Last Vital Signs Temp 99.1 F 11/05/19 07:15 Pulse 54 L 11/05/19 07:15 Resp 16 11/05/19 07:15 BP 130/67 11/05/19 07:15 Pulse Ox 98 11/05/19 07:15 Allergies Allergy/AdvReac Type Severity Reaction Status Date / Time amoxicillin [From Augmentin] Allergy Hives Verified 11/05/19 06:49 clavulanic acid Allergy Hives Verified 11/05/19 06:49 [From Augmentin] Penicillins Allergy Hives Verified 11/05/19 06:49 plastic tape Allergy Blister Uncoded 11/05/19 06:49 chicken AdvReac Diarrhea Uncoded 11/05/19 06:49 Home Medications Medication Instructions Recorded Confirmed Type Bariatric Multivitamins 1 cap PO DAILY 04/26/19 11/05/19 History Vitamin D3 2,000 units PO DAILY 04/26/19 11/05/19 History armodafinil 125 mg PO DAILY 04/26/19 11/05/19 History baclofen 20 mg PO BID 04/26/19 11/05/19 History baclofen 30 mg PO HS 04/26/19 11/05/19 History vitamin B complex [B 1 tablet PO DAILY 04/26/19 11/05/19 History Complex-Vitamin B12] acetaminophen 1,000 mg PO Q6H PRN #0 tablet 04/27/19 11/05/19 Rx atorvastatin 20 mg PO DAILY #30 tablet 04/27/19 11/05/19 Rx nitroglycerin [Nitrostat] 0.4 mg SUBLINGUAL Q5MIN PRN #20 04/27/19 09/17/19 Rx tablet aspirin 325 mg PO DAILY 09/17/19 11/05/19 History fluticasone propionate [Flonase 2 spray INTRANASAL DAILY 09/17/19 11/05/19 History Allergy Relief] metoprolol succinate [Toprol XL] 50 mg PO QPM 09/17/19 11/05/19 History pitolisant [Wakix] 17.8 mg PO DAILY 09/17/19 11/05/19 History ranolazine [Ranexa] 500 mg PO Q12H 09/17/19 11/05/19 History misoprostol 200 mcg tablet 400 mcg VAGINAL ONCE #2 tablet 10/23/19 11/05/19 Rx Patient hx anesthesia problems: none Family hx anesthesia problems: none PMFSH Past Medical History Medical History Achilles tendon disorder Allergic rhinitis Anemia Cerebral palsy Depression Essential hypertension Heart attack HTN (hypertension) Iron deficiency anemia 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amily History Mother Narcolepsy CANDELARIA (obstructive sleep apnea) Diabetes mellitus Acute myocardial infarction Congestive heart failure Hypertension Sibling Chronic obstructive pulmonary disease Social History Social History Smoking status: Never smoker Second hand tobacco smoke exposure: Yes Alcohol intake: current Drinks per week: 1 Substance use: never Gender identity (if verbalized by the patient): Female Spiritual care concerns: No Agree to blood products: Yes Anes - Eval Final PreProcedure Day of Procedure 11/05/19 08:37 Patient weight: normal Heart: regular rate and rhythm Lungs: clear to auscultation Airway: Mallampati scale class II Neurological: alert and oriented Last oral intake: >/= 8 hours ASA classification: III Emergent: no Anesthetic plan: proceed Anesthesia type and monitoring: general GIVS and standard monitoring Informed Consent: The patient's anesthetic plan and its attendant risks and benefits were discussed with the patient/family/POA. Questions were solicited and answers provided to the satisfaction of the patient/family/POA.
--- NOTE | 2019-11-05 08:58 | WPDHPUPDATE1 ---
History and Physical Update Update Date/Time: 11/05/19 08:58 History and Physical has been reviewed, including an updated exam of the patient. There are NO changes in the patient's condition. Risks, benefits, and alternatives have been discussed and questions answered. Patient agrees to proceed with procedure.
--- NOTE | 2019-11-05 09:32 | PM.PROC ---
Procedure Note - Detailed Date of procedure: 11/05/19 Pre-op diagnosis: Menorrhagia Post-op diagnosis: same Procedure performed: Hysteroscopy, dilation and curettage, endometrial ablation with Sharita Description of procedure: The patient was taken to the operating room where she was assisted to the operating room table. Patient was placed in dorsal supine position. Anesthesia was administered and found to be adequate. The patient was repositioned in dorsal lithotomy position with the use of Nathanael stirrups. She was prepped and draped in the usual sterile fashion. A red rubber catheter was used to drain the bladder of 100 cc of concentrated urine. A bivalve speculum was inserted into the vagina. The cervix was well visualized. The anterior lip of the cervix was grasped with a single-tooth tenaculum. A paracervical block was performed with 1% lidocaine. 5 cc of lidocaine was administered on both sides. The uterus was sounded to 8 cm. The cervix was serially dilated to accommodate a hysteroscope. The hysteroscope was introduced into the endometrial cavity. A moderate amount of fluffy endometrial tissue was noted. The left tubal ostia was visualized. The right tubal ostia was slightly obscured by tissue. A few photographs of the endometrial cavity were taken and the hysteroscope was removed. A medium size rigid curette was then inserted into the endometrial cavity. All quadrants of the endometrium were explored and a moderate amount of tissue was obtained. Specimen was prepared to the be sent to pathology for analysis. The Sharita console was powered on and the hand-held device was connected. The appropriate settings were input on the hand-held device and the array was collapsed. The array was introduced into the endometrial cavity and deployed. The cervical balloon was insufflated. An integrity check x2 was performed by the console and passed. The ablation procedure began automatically and ran for the preset time of 120 seconds after which it automatically terminated. The procedure was deemed complete. The cervical balloon was desufflated and the array was collapsed and removed. The vagina was cleansed and dried. The tenaculum was removed from the anterior lip of the cervix. A pinpoint area of bleeding was noted from one of the tenaculum puncture sites. This site was made hemostatic with silver nitrate. The vagina was dried again and the speculum was removed. The patient was cleansed and dried and taken out of the dorsal lithotomy position. She was awakened from anesthesia without difficulty and transported to the recovery room in stable condition. All sponge and instrument counts were correct at the end of the procedure. Anesthesia: MAC Surgeon: Raisa Man MD Estimated blood loss (mL): 5 IV fluids (mL): 650 Urine output (mL): 100 Drains: No Packing: No Pathology: yes (endometrial curettings) Complications: No immediate complications Condition: stable Disposition: same day Findings: Intraoperative findings: moderate amount of fluffy endometrial tissue, left tubal ostia visualized, right tubal ostia slightly obscured, moderate tissue obtained
[2019-11-05 09:35] VITALS: BP 95/60; PULSE 66; RESP 12; O2SAT 99
[2019-11-05 10:05] VITALS: BP 110/76; PULSE 62; RESP 12
[2019-11-05 10:35] VITALS: BP 115/80; PULSE 60; RESP 12
== END 2019-11-05 11:00 | disposition home or self-care (01) ==
PROVIDERS: Visit Provider Student in an Organized Health Care Education/Training Program
PROC: 0U5B8ZZ Destruction of Endometrium, Via Natural or Artificial Opening Endoscopic (ICD-10-PCS; CPT 58563; principal; 2019-11-05 08:30)
DX: N92.0 Excessive and frequent menstruation with regular cycle (principal); I10 Essential (primary) hypertension; G47.33 Obstructive sleep apnea (adult) (pediatric); E28.2 Polycystic ovarian syndrome; I25.10 Atherosclerotic heart disease of native coronary artery without angina pectoris; D50.9 Iron deficiency anemia, unspecified; G47.419 Narcolepsy without cataplexy; G80.9 Cerebral palsy, unspecified; I25.2 Old myocardial infarction; Z98.84 Bariatric surgery status
CPT/HCPCS: 58563; 88305; A9270; J2250; J2370; J2704; J3010; J7030; J7120

== ENCOUNTER 2020-06-15 08:07 | Outpatient (CLI) | payer BC, SELFPAY ==
--- NOTE | ~2020-06-15 | MM_ITS ---
EXAMINATION: MM screening allison BI w blair HISTORY: Screening mammogram TECHNIQUE: Craniocaudal and mediolateral oblique 3-D tomosynthesis images were obtained and synthetic 2-D images were generated. CAD analysis was submitted and interpreted. COMPARISON: No prior mammogram is available for comparison at this institution. BREAST PARENCHYMAL COMPOSITION: There are scattered areas of fibroglandular density. FINDINGS: RIGHT BREAST: There is focal asymmetry in the posterior third of the upper outer quadrant of the [address]. LEFT BREAST: An asymmetry is present in the middle third of the lower breast 7 cm from the nipple on the mediolateral oblique view. IMPRESSION: 1. Bilateral breast findings as described above. 2. Additional mammographic views and possible breast ultrasound are recommended to evaluate for malig liu and establish a baseline given that this is the first mammographic examination. BI-RADS Category 0: Incomplete: Needs additional imaging evaluation. Reviewed, dictated and finalized at location A. IMPRESSION: 1. Bilateral breast findings as described above. 2. Additional mammographic views and possible breast ultrasound are recommended to evaluate for malignancy and establish a baseline given that this is the fir st mammographic examination. BI-RADS Category 0: Incomplete: Needs additional imaging evaluation.
== END 2020-06-15 08:08 | disposition home or self-care (01) ==
LOC: ANHIMG 08:09
PROVIDERS: Visit Provider Student in an Organized Health Care Education/Training Program
DX: Z12.31 Encounter for screening mammogram for malignant neoplasm of breast (principal); R92.8 Other abnormal and inconclusive findings on diagnostic imaging of breast
CPT/HCPCS: 77063; 77067

== ENCOUNTER 2020-08-19 13:43 | Outpatient (CLI) | payer BC, SELFPAY ==
--- NOTE | ~2020-08-19 | MMUS_ITS ---
EXAMINATION: MM diagnostic mammo BI, US breast RT limited HISTORY: Follow-up breast asymmetries TECHNIQUE: Additional 3-D tomosynthesis images of the breasts were performed and synthetic 2-D images were generated. CAD analysis was submitted and interpreted. High resolution Limited right breast ult rasound was performed. COMPARISON: 06/15/2020 BREAST PARENCHYMAL COMPOSITION: Breast composed of scattered areas of fibroglandular density. FINDINGS: MAMMOGRAPHIC FINDINGS: There are no suspicious masses, calcifications or architectural distortion in either breast to sugges t malignancy. ULTRASOUND: Limited right breast ultrasound: Normal heterogeneous echotexture without focal solid or cystic mass. IMPRESSION: 1. No evidence for malignancy in either breast. 2. Routine yearly screening mammogram and regular clinical breast examination are recommended. BI-RADS Category 1: Negative Reviewed, dictated and finalized at location A. IMPRESSION: 1. No evidence for malignancy in either breast. 2. Routine yearly screening mammogram and regular clinical breast examination a re recommended. BI-RADS Category 1: Negative
== END 2020-08-19 13:44 | disposition home or self-care (01) ==
LOC: ANHIMG 13:46
PROVIDERS: Visit Provider Student in an Organized Health Care Education/Training Program
DX: R92.8 Other abnormal and inconclusive findings on diagnostic imaging of breast (principal)
CPT/HCPCS: 76642; 77066

== ENCOUNTER 2021-03-09 11:45 | Outpatient (CLI) | payer BC, SELFPAY ==
--- NOTE | ~2021-03-09 | MR_ITS ---
EXAMINATION: MR shoulder RT wo con DATE: 03/09/2021 14:46 INDICATION: Right shoulder pain TECHNIQUE: Magnetic resonance imaging (MRI) of the right shoulder was performed without intravenous c ontrast. Sequences included axial PD-weighted FS FSE, coronal oblique PD-weighted FS FSE, coronal obl ique T2-weighted FS FSE, sagittal PD-weighted FS FSE, and sagittal T1-weighted SE. COMPARISON: None. FINDINGS: Coracoacromial arch: The acromion undersurface is curved in morphology (type II). The coracoacromial ligament is normal. A cromioclavicular joint is normal. Rotator cuff: The supraspinatus, infraspinatus and teres minor tendons are normal. Mild subscapularis tendinopathy without discrete tear. Normal rotator cuff muscle bulk and signal. Biceps tendon, glenoid labrum and glenohumeral cartilage: Long head of the biceps tendon is normal. Glenoid labrum is normal. Glenohumeral cartilage is normal. Fluid: Physiologic amount of fluid in the glenohumeral joint and biceps tendon sheath. No loose osteochondra l bodies. Mild increased fluid signal in the subacromial/subdeltoid bursa consistent with minimal bur sitis. Bones: Normal marrow signal with no edema, fracture or abnormal marrow replacing process. IMPRESSION: 1. . Subscapularis tendinopathy without discrete tear. 2. Minimal subacromial/subdeltoid bursitis. Reviewed, dictated and finalized at [facility]. RVISOR EDGING
== END 2021-03-09 11:46 | disposition home or self-care (01) ==
LOC: ANHIMG 11:47
PROVIDERS: Visit Provider Orthopaedic Surgery
DX: M75.81 Other shoulder lesions, right shoulder (principal); M75.51 Bursitis of right shoulder
CPT/HCPCS: 73221

== ENCOUNTER 2023-10-22 01:42 | Emergency (ER) | payer OTHER, SELFPAY ==
--- NOTE | ~2023-10-22 | XR_ITS ---
Portable chest x-ray Comparison: 04/26/2019 Clinical History: Shortness of breath Findings: Lungs are clear, without focal consolidation or pleural effusion. Cardiomediastinal silho uette is stable. Bones and soft tissues are unremarkable. Impression: Normal chest. Reviewed, dictated and finalized at location . Impression: Normal chest.
[2023-10-22 01:44] VITALS: BP 143/98; PULSE 63; RESP 15; O2SAT 100
[2023-10-22 01:57] LABS: Basophils Percent Auto 0.3 % (0.2-1.2); Eosinophils Absolute Auto 0.1 K/mm3 (0-0.3); Eosinophils Percent Auto 1.4 % (0-4.4); Hematocrit 46.1 % (37.0-47.0); Immature Granulocyte Absolute 0.01 K/mm3 (0.00-0.031); Immature Granulocyte Percent A 0.1 % (0-0.5); Lymphocytes Absolute Auto 2.63 K/mm3 (0.9-3.2); Lymphocytes Percent Auto 37.1 % (18.3-44.2); Mean Corpuscular HGB Conc 32.5 g/dl (32-36); Mean Corpuscular Hemoglobin 28.6 pg (26-34); Mean Platelet Volume 9.1 fl (7.4-10.4); Monocytes Absolute Auto 0.6 K/mm3 (0.1-0.6); Monocytes Percent Auto 7.9 % (2.6-8.5); Neutrophils Absolute Auto 3.8 K/mm3 (1.3-6.7); Neutrophils Percent Auto 53.2 % (45.5-73.1); Platelet Count Result 297 k/mm3 (150-375); Red Blood Count 5.24 M/mm3 (4.2-5.4); Red Cell Distribution Width 13.3 % (11.5-14.5); White Blood Count 7.1 K/mm3 (4.5-10.0)
[2023-10-22 02:08] LABS: INR 0.9; Partial Thromboplastin Time 28.2 Seconds (22.3-36.8); Prothrombin Time 13.1 Seconds (11.1-14.7)
[2023-10-22 02:10] VITALS: O2SAT 99
[2023-10-22 02:11] VITALS: BP 125/83; PULSE 71; RESP 16; O2SAT 99
[2023-10-22 02:12] LABS: Alanine Aminotransferase 22 U/L (6-35); Albumin Level 4.7 g/dL (3.5-5.1); Alkaline Phosphatase 83 U/L (38-126); Anion Gap 10 mmol/L (4-12); Aspartate Amino Transferase 29 U/L (14-36); Bilirubin,Total 0.3 mg/dL (0.2-1.3); Blood Urea Nitrogen 10 mg/dL (7-17); Calcium 9.5 mg/dL (8.4-10.2); Carbon Dioxide 29 mmol/L (22-30); Chloride 99 mmol/L (98-107); Estimated CRCL calculation 96 ml/min; Estimated Glomerular Filt Rate > 60; Glucose 91 mg/dL (65-110); Lipase 81 U/L (23-300); Potassium 3.4 mmol/L (3.4-5.0); Sodium 138 mmol/L (137-145)
[2023-10-22 02:23] LABS: Troponin I < 0.012 ng/mL (0.000-0.034)
--- NOTE | 2023-10-22 02:24 | ED.GENADULT ---
HPI - General Adult General Chief complaint: Chest Pain Stated complaint: chest pain Time Seen by Provider: 10/22/23 01:59 History of Present Illness HPI narrative: patient 48-year-old female who presents emergency department with chief complaint of chest pain. Patient reports that while at work she started having episodes of discomfort in her chest patient reports that it radiates to her back of reports of last between 5 and 15 minutes and was intermittent in nature. Patient reports that she had an EKG performed on herself while at work upstairs that showed T-wave inversions. Patient reports that this is different from her typical EKG and was concerning and decided to come downstairs and he evaluated for 0 cardiac markers Related Data Home Medications Medication Instructions Recorded Confirmed Vitamin D3 2,000 units PO DAILY 04/26/19 12/01/20 armodafinil 250 mg tablet 125 mg PO DAILY 04/26/19 12/01/20 baclofen 20 mg tablet 20 mg PO BID 04/26/19 12/01/20 baclofen 20 mg tablet 30 mg PO HS 04/26/19 12/01/20 [id number] 45 mg-folic 1 cap PO DAILY 04/26/19 12/01/20 acid 800 mcg-vit K 120 mcg capsule (Bariatric Multivitamins) vitamin B complex (B 1 tablet PO DAILY 04/26/19 12/01/20 Complex-Vitamin B12 tablet) aspirin 325 mg tablet 325 mg PO DAILY 09/17/19 12/01/20 fluticasone propionate 50 2 spray intranasal DAILY 09/17/19 12/01/20 mcg/actuation nasal spray,suspension (Flonase Allergy Relief) metoprolol succinate 25 mg 50 mg PO QPM 09/17/19 12/01/20 tablet,extended release 24 hr (Toprol XL) pitolisant 17.8 mg tablet (Wakix) 17.8 mg PO DAILY 09/17/19 12/01/20 ranolazine 500 mg tablet,extended 500 mg PO Q12H 09/17/19 12/01/20 release,12 hr (Ranexa) Allergies Allergy/AdvReac Type Severity Reaction Status Date / Time amoxicillin [From Augmentin] Allergy Hives Verified 12/01/20 15:38 clavulanic acid Allergy Hives Verified 12/01/20 15:38 [From Augmentin] Penicillins Allergy Hives Verified 12/01/20 15:38 plastic tape Allergy Blister Uncoded 11/05/19 06:49 chicken AdvReac Diarrhea Uncoded 11/05/19 06:49 Review of Systems Review of Systems: A 10 system review of systems was completed on the patient and is negative except for what is stated in the HPI. Nursing and ancillary documentation was reviewed. PMFSH Past Medical History Medical History Abnormal mammogram of both breasts Achilles tendon disorder Allergic rhinitis Anemia Cerebral palsy Depression Essential hypertension Heart attack HTN (hypertension) Iron deficiency anemia 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amily History Mother Narcolepsy CANDELARIA (obstructive sleep apnea) Diabetes mellitus Acute myocardial infarction Congestive heart failure Hypertension Sibling Chronic obstructive pulmonary disease Social History Social History Smoking status: Never smoker Second hand tobacco smoke exposure: Yes Alcohol intake: current Drinks per week: 1 Substance use: never Gender identity (if verbalized by the patient): Female Spiritual care concerns: No Agree to blood products: Yes Exam Narrative: GENERAL: Well-appearing, well-nourished, and in no acute distress. HEAD: Normocephalic, atraumatic. EYES: PERRLA and EOMI. ENT: Nares clear, no rhinorrhea or epistaxis. Mucous membranes moist. NECK: Supple. CHEST: Clear to auscultation. No respiratory distress. HEART: Regular rate and rhythm. No mu
[2023-10-22 03:15] VITALS: BP 115/76; PULSE 71; RESP 17; O2SAT 100
[2023-10-22] MEDS: BELLADONNA ALK/PHENOB ELIX 10 ML, MAG HYDROX/ALUMINUM HYD/SIMETH 30 ML, LIDOCAINE HCL 2... PO (05:29)
[2023-10-22] MEDS: SODIUM CHLORIDE 0.9% IV 100 ML (05:29)
[2023-10-22] MEDS: PANTOPRAZOLE SODIUM IV 40 MG VIAL IV PUSH (05:29)
[2023-10-22 05:46] LABS: Troponin I < 0.012 ng/mL (0.000-0.034)
--- NOTE | 2023-10-22 05:53 | PC.NURSE ---
Order set was put in under Dr. Brandon instead of Dr. Sampson by mistake. Unable to edit the orders at this time.
[2023-10-22 06:01] VITALS: BP 128/80; PULSE 65; RESP 15; O2SAT 100
== END 2023-10-22 06:22 | disposition home or self-care (01) ==
PROVIDERS: Internal Medicine; Emergency Provider Emergency Medicine; PCP Internal Medicine
DX: R07.9 Chest pain, unspecified (principal); D64.9 Anemia, unspecified; G80.9 Cerebral palsy, unspecified; F32.A Depression, unspecified; I10 Essential (primary) hypertension; G47.30 Sleep apnea, unspecified; G47.411 Narcolepsy with cataplexy
CPT/HCPCS: 36415; 71045; 80053; 83690; 84484; 85025; 85610; 85730; 93005; 96374; 99284; A9270; J2470